=== PATIENT | male | born 1960 | race Caucasian/White ===

== ENCOUNTER → 2022-12-18 | Outpatient (CLI) | payer BC ==
--- NOTE | 2022-12-18 17:43 | Diagnostic Imaging Report ---
EXAMINATION: Right hip radiograph EXAM DATE: 12/18/2022 1:48 PM COMPARISON: None available. HISTORY: Right hip pain TECHNIQUE: 2 views FINDINGS: There is no acute fracture, dislocation, or destructive osseous process. The joint spaces are normal. The soft tissues are normal. IMPRESSION: 1. No acute osseous abnormality. Dictated by: Dictated on workstation # [id number]
== END ==
LOC: RAD FS 13:33
PROVIDERS: ATTEND Orthopaedic Surgery
DX: M25.551 Pain in right hip (principal)
CPT/HCPCS: 73502